=== PATIENT | female | born 1980 | race Caucasian/White ===

== ENCOUNTER 2018-09-27 08:46 | Emergency (ER) | payer OTHER ==
[~2018-09-27] VITALS: Ht 160 cm; Wt 58.3 kg
[2018-09-27 08:49] VITALS: Ht 160 cm; Wt 58.3 kg
[2018-09-27] MEDS ORDERED: ACET500C5 PO (11:46)
--- NOTE | 2018-09-27 11:54 | ERD ---
ER Documentation Chief Complaint Chief Complaint LT SIDE ABD PAIN X 3 DAYS HPI Patient is a 37-year-old female with past medical history of hypothyroidism, G3, P2, approximately 4-5 weeks , presents the ER for concerns of left lower abdominal pain times 3 days. Patient denies any vaginal bleeding or fluid loss. Patient states she has an intermittent cramping pain in the left lower quadrant. Patient denies any nausea or vomiting. Patient denies any diarrhea. Patient denies any rectal bleeding. Patient states her last mental period was 08-18-18. Patient has not established care with [facility] [employer] yet. Patient denies any fevers or chills. Patient denies any UTI symptoms. ROS All systems reviewed and are negative except as per history of present illness. Medications Home Meds Active Scripts Acetaminophen* (Tylophen*) 500 Mg Capsule, 1 CAP PO Q6H PRN for PAIN AND OR ELEVATED TEMP, #20 CAP Prov:DOROTA DÍAZ PA-C 09/27/18 Allergies Allergies: Coded Allergies: No Known Allergy (Unverified , 04/22/14) PMhx/Soc History of Surgery: Yes (NASAL SX) Anesthesia Reaction: No Hx Neurological Disorder: No Hx Respiratory Disorders: No Hx Cardiac Disorders: No Hx Psychiatric Problems: No Hx Miscellaneous Medical Probl: No Hx Alcohol Use: No Hx Substance Use: No Hx Tobacco Use: No Smoking Status: Never smoker FmHx Family History: No diabetes Physical Exam Vitals Vital Signs Date Temp Pulse Resp B/P (MAP) Pulse Ox O2 O2 Flow FiO2 Time Delivery Rate 09/27/18 98.1 111 16 138/76 100 08:49 (96) Physical Exam GENERAL: Well-developed, well-nourished female. Appears in no acute distress. Speaking in full sentences. HEAD: Normocephalic, atraumatic. EYES: Pupils are equally reactive bilaterally. EOMs grossly intact. No conjunctival erythema. ENT: Moist mucous membranes. No uvula deviation. No kissing tonsils. NECK: Supple. No meningismus. Normal range of motion of the neck. LUNG: Clear to auscultation bilaterally. No rhonchi, wheezing, rales or coarse breath sounds. HEART: Tachycardic. No murmurs, rubs or gallops. ABDOMEN: Soft, nondistended. Minimally tender to palpation in the left lower quadrant. No rebound tenderness, no guarding. (-) McBurney's point tenderness. No CVA tenderness. EXTREMITIES: Equal pulses bilaterally. No peripheral clubbing, cyanosis or edema. No unilateral leg swelling. NEUROLOGIC: Alert and oriented. Moving all four extremities without any difficulty. Normal speech. Steady gait. SKIN: Normal color. Warm and dry. No rashes or lesions. Result Diagram: 09/27/18950 Results 24 hrs Laboratory Tests Test 09/27/18 09:51 White Blood Count 5.7 10^3/ul Red Blood Count 4.69 10^6/ul Hemoglobin 12.9 g/dl Hematocrit 40.3 % Mean Corpuscular Volume 85.9 fl Mean Corpuscular Hemoglobin 27.5 pg Mean Corpuscular Hemoglobin Concent 32.0 g/dl Red Cell Distribution Width 13.7 % Platelet Count 195 10^3/UL Mean Platelet Volume 9.8 fl Immature Granulocytes % 0.200 % Neutrophils % 70.2 % Lymphocytes % 23.9 % Monocytes % 4.4 % Eosinophils % 0.9 % Basophils % 0.4 % Nucleated Red Blood Cells % 0.0 /100WBC Immature Granulocytes # 0.010 10^3/ul Neutrophils # 4.0 10^3/ul Lymphocytes # 1.4 10^3/ul Monocytes # 0.3 10^3/ul Eosinophils # 0.1 10^3/ul Basophils # 0.0 10^3/ul Nucleated Red Blood Cells # 0.0 10^3/ul Urine Color STRAW Urine Clarity CLEAR Urine pH 7.0 Urine Specific Murdock 1.009 Urine Ketones NEGATIVE mg/dL Urine Nitrite NEGATIVE mg/dL Urine Bilirubin NEGATIVE mg/dL Urine Urobilinogen NEGATIVE mg/dL Urine Leukocyte Esterase NEGATIVE Laron/ul Urine Hemoglobin NEGATIVE mg/dL Urine Glucose NEGATIVE mg/dL Urine Total Protein NEGATIVE mg/dl Beta HCG, Quantitative 663.2 mIU/ml Procedures/MDM ED COURSE: The patient was stable throughout ED course. I kept the patient and/or family informed of laboratory and diagnostic imaging results throughout the ED course. DIAGNOSTIC IMAGING: Read by radiologist. DIAGNOSTIC IMAGING REPORT Patient: ALLY MCDANIELS : 1980 Age: 37 Sex: F MR #: [id number] DOS: 09/27/18 09 Ordering MD: DOROTA DÍAZ PA-C Location: [facility] Room/Bed: PROCEDURE: US OB. CLINICAL INDICATION: First trimester left pelvic pain. Threatened . TECHNIQUE: Transabdominal and transvaginal views of the pelvis are available for review. COMPARISON: No prior studies are available for comparison. FINDINGS: Uterus is anteverted. It measures 8.8 x 4.4 x 7.6 cm. Uterus of normal contour and echogenicity. Noted is a 2.6 cm fundal fibroid. There is a well-demarcated endometrial stripe complex measuring 19 mm in diameter. No intrauterine gestation sac is seen. There is no fluid within the canal. There is no hyperemia of the endometrium to suggest retained products. The right ovary measures 3.0 x 1.4 x 2.7 cm. Left ovary measures 3.3 x 1.9 x 3.5 cm. There is a 1.8 x 1.4 centimeter nonshadowing mass-like structure in the left ovary with peripheral vascularity. No other adnexal abnormality is seen and there is normal arterial flow to both ovaries on color-flow Doppler imaging. There is no free fluid in the pelvis. No solid pelvic masses present. IMPRESSION: No intrauterine gestation seen. Thickened endometrial stripe complex. Question viable very early intrauterine versus spontaneous . Ectopic cannot be ruled out. Correlation with quantitative serial beta HCG levels is suggested. 1.8 x 1.4 cm mass-like structure left ovary with peripheral vascularity. It is unclear whether this represents a solid mass, an ectopic or a debris filled or hemorrhagic cyst. Follow-up ultrasound should be performed to insure stability. .Daryl Beltrán MD, MD Date Time Electronically viewed and signed by .Daryl Beltrán MD, MD on 09/27/2018 10:33 .A/ CC: DOROTA DÍAZ PA-C [phone] MEDICAL DECISION MAKING: This is a 37-year-old female, G3, P2, approximately 4-5 weeks , presents the ER for concerns of left-sided pelvic pain times 3 days. Patient denies any vaginal bleeding.. Vital signs were reviewed. Patient was afebrile. Patient was hemodynamically stable. Quantitative b-HCG was 663. Patient's blood type was noted to be O- however she had no vaginal bleeding today. Patient was advised if she has vaginal bleeding she will need to return to the ER immediately as she will need RhoGam. CBC showed no evidence of systemic infection or severe anemia UA was negative for acute infection or hematuria.. Pelvic US showed No intrauterine gestation seen. Thickened endometrial stripe complex. Question viable very early intrauterine versus spontaneous . Ectopic cannot be ruled out. Correlation with quantitative serial beta HCG levels is suggested. 1.8 x 1.4 cm mass-like structure left ovary with peripheral vascularity. It is unclear whether this represents a solid mass, an ectopic or a debris filled or hemorrhagic cyst. Follow-up ultrasound should be performed to insure stability. I did consult the [facility] [employer] consultant Dr. Carvalho for concerns of ectopic . She advised me to have the patient return in 48 hours for recheck. Patient was advised to return in 48 hours for repeat beta-hCG and pelvic ultrasound. Patient was advised to return sooner for any new or worsening symptoms including but not limited to worsening pelvic pain, vaginal bleeding, fluid loss, fevers, chills, dizziness, lightheadedness. Patient is aware that are not able to definitively rule out ectopic at this time. Low suspicion for ruptured ectopic , molar , subchorionic hematoma, spontaneous , incomplete , complete , missed , placental abruption, placental previa, vasa previa, uterine rupture, anembyronic . Patient was nontoxic, [id number] prior to discharge. PRESCRIPTIONS: Tylenol DISCHARGE: At this time, patient is stable for discharge and outpatient management. Patient advised to return here in 48 hours for recheck. I have instructed the patient to promptly return to the ER at any time for any new or worsening symptoms including increased pain, nausea, vomiting, continued bleeding, weakness, syncope or fever. The patient and/or family expressed understanding of and agreement with this plan. All questions were answered. Home care instructions were provided. Disclaimer: Inadvertent spelling and grammatical errors are likely due to EHR/dictation software use and do not reflect on the overall quality of patient care. Also, please note that the electronic time recorded on this note does not necessarily reflect the actual time of the patient encounter. Departure Diagnosis: Primary Impression: Pelvic pain complicating Condition: Fair Patient Instructions: Pelvic Pain In : Unclear (2-3 Trimester) Referrals: [facility] YOU HAVE RECEIVED A MEDICAL SCREENING EXAM AND THE RESULTS INDICATE THAT YOU DO NOT HAVE A CONDITION THAT REQUIRES URGENT TREATMENT IN THE EMERGENCY DEPARTMENT. FURTHER EVALUATION AND TREATMENT OF YOUR CONDITION CAN WAIT UNTIL YOU ARE SEEN IN YOUR DOCTORS OFFICE WITHIN THE NEXT 1-2 DAYS. IT IS YOUR RESPONSIBILITY TO MAKE AN APPOINTMENT FOR FOLOW-UP CARE. IF YOU HAVE A PRIMARY DOCTOR --you should call your primary doctor and schedule an appointment IF YOU DO NOT HAVE A PRIMARY DOCTOR YOU CAN CALL OUR PHYSICIAN REFERRAL HOTLINE AT IF YOU CAN NOT AFFORD TO SEE A PHYSICIAN YOU CAN CHOSE FROM THE FOLLOWING [facility] [address] [facility] [address] [place] [address] [facility] [address] [facility] [address] [facility] [address] [facility]. [facility] [address] [facility] [facility] YOU HAVE RECEIVED A MEDICAL SCREENING EXAM AND THE RESULTS INDICATE THAT YOU DO NOT HAVE A CONDITION THAT REQUIRES URGENT TREATMENT IN THE EMERGENCY DEPARTMENT. FURTHER EVALUATION AND TREATMENT OF YOUR CONDITION CAN WAIT UNTIL YOU ARE SEEN IN YOUR DOCTORS OFFICE WITHIN THE NEXT 1-2 DAYS. IT IS YOUR RESPONSIBILITY TO MAKE AN APPOINTMENT FOR FOLOW-UP CARE. IF YOU HAVE A PRIMARY DOCTOR --you should call your primary doctor and schedule and appointment IF YOU DO NOT HAVE A PRIMARY DOCTOR YOU CAN CALL OUR PHYSICIAN REFERRAL HOTLINE AT . IF YOU CAN NOT AFFORD TO SEE A PHYSICIAN YOU CAN CHOSE FROM THE FOLLOWING [facility] INSTITUTIONS: [facility] [address] [place] [address] [facility] [address] [place] [address] [facility] [address] [place] [address] [employer] [employer] [employer] [place] [address] [facility] [address] [place] [address] OFFICE FAX , DARIELA [address] [place] [address] [address]. SOLIMAN, [place] [address] [place] [address] DR ULLOA, [facility] [address], [place] [address] [address] [facility] [address] [facility] [place] [address] [facility] [address] [place] [address] [phone] [facility] [address] - [address] PIÑA, [place] [address], [place] [address] DR HUNT, [place] [address] [facility]. [address], [place] [address] DR MOISE, [facility] [address] [place], [place] [id number] Additional Instructions: Return here in 2 days at 9 AM for repeat beta-hCG and pelvic ultrasound. Unable to definitively rule out ectopic . If you have any worsening pain, vaginal bleeding, dizziness or lightheadedness return to the ER immediately. Call your primary care doctor TOMORROW for an appointment during the next 1-2 days.See the doctor sooner or return here if your condition worsens before your appointment time. DOROTA DÍAZ PA-C Sep 27, 2018 11:54
[2018-09-27 11:55] VITALS: BP 125/82; PULSE 99; RESP 18
== END 2018-09-27 11:56 | disposition home or self-care (01) ==
LOC: FTE 08:46
DX: O26.891 Other specified pregnancy related conditions, first trimester (principal); R10.2 Pelvic and perineal pain; E03.9 Hypothyroidism, unspecified; O99.281 Endocrine, nutritional and metabolic diseases complicating pregnancy, first trimester; Z3A.01 Less than 8 weeks gestation of pregnancy
CPT/HCPCS: 36415; 76801; 76817; 81003; 84702; 85025; 86900; 86901; Z7502

== ENCOUNTER 2018-10-07 08:44 | Emergency (ER) | payer OTHER ==
[~2018-10-07] VITALS: Wt 80.0 kg
[~2018-10-07 08:44] MED LIST: ACET500C5 PO
[2018-10-07 11:13] VITALS: BP 115/80; PULSE 79; RESP 18
--- NOTE | 2018-10-07 12:48 | ERD ---
ER Documentation Chief Complaint Chief Complaint send for rhogam, had ab 2 days ago HPI Patient is a 37-year-old female with no medical problems who presents for RhoGam. The patient was sent by Dr. Lutz for RhoGam administration. The patient says that she is O- blood type. She had a miscarriage at about 5 weeks of . The miscarriage was 2 days ago. She has needed RhoGam in the past. She has no complaints at this time. ROS All systems reviewed and are negative except as per history of present illness. Medications Home Meds Active Scripts Acetaminophen* (Tylophen*) 500 Mg Capsule, 1 CAP PO Q6H PRN for PAIN AND OR ELEVATED TEMP, #20 CAP Prov:DOROTA DÍAZ PA-C 09/27/18 Allergies Allergies: Coded Allergies: No Known Allergy (Unverified , 10/07/18) PMhx/Soc History of Surgery: Yes (NASAL SX) Anesthesia Reaction: No Hx Neurological Disorder: No Hx Respiratory Disorders: No Hx Cardiac Disorders: No Hx Psychiatric Problems: No Hx Miscellaneous Medical Probl: No Hx Alcohol Use: No Hx Substance Use: No Hx Tobacco Use: No Smoking Status: Never smoker FmHx Family History: No diabetes Physical Exam Vitals Vital Signs Date Temp Pulse Resp B/P (MAP) Pulse Ox O2 O2 Flow FiO2 Time Delivery Rate 10/07/18 97.7 79 18 115/80 99 Room Air 11:13 (92) 10/07/18 98.1 77 18 129/77 99 08:50 (94) Physical Exam Const: No acute distress Head: Atraumatic Eyes: Normal Conjunctiva ENT: Normal External Ears, Nose and Mouth. Neck: Full range of motion. No meningismus. Resp: Clear to auscultation bilaterally Cardio: Regular rate and rhythm, no murmurs Abd: Soft, non tender, non distended. Normal bowel sounds Skin: No petechiae or rashes Back: No midline or flank tenderness Ext: No cyanosis, or edema Neur: Awake and alert Psych: Normal Mood and Affect Procedures/MDM Patient is a 37-year-old female who presents for RhoGam administration. She will be given RhoGam. She has no other complaints will be discharged at this time. She can return for any worsening symptoms. She should follow-up with her doctor within 1 week. Departure Diagnosis: Primary Impression: Complete Condition: Fair Patient Instructions: Miscarriage, Spontaneous (Completed) Referrals: ELLEN LUTZ M.D. Additional Instructions: Call your primary care doctor TOMORROW for an appointment during the next 1 WEEK.Tell the workers compensation legal secretary that you were referred from this facility.See the doctor sooner or return here if your condition worsens before your appointment time. LUCIUS YOON MD Oct 07, 2018 12:48
== END 2018-10-07 11:30 | disposition home or self-care (01) ==
LOC: E/R 08:44
DX: O03.9 Complete or unspecified spontaneous abortion without complication (principal)
CPT/HCPCS: 36415; 86900; 86901; J2790; Z7502; 99283